=== PATIENT | male | born 1965 | race Caucasian/White ===

== ENCOUNTER 2020-01-11 09:56 | Outpatient (CLI) | payer OTHER, SELFPAY ==
--- NOTE | ~2020-01-11 | XR_ITS ---
EXAMINATION: XR chest 2V DATE: 01/11/2020 10:10 INDICATION: Nicotine dependence, unspecified, uncomplicated. Shortness of breath. TECHNIQUE: Frontal and lateral views of the chest were obtained. COMPARISON: None. FINDINGS: The chest demonstrates clear lungs without pneumonia, pleural effusion, or pneumothorax. Th e heart size is normal. IMPRESSION: 1. No acute cardiopulmonary disease. Reviewed, dictated and finalized at location A. [employer]ITER
== END 2020-01-11 09:57 | disposition home or self-care (01) ==
PROVIDERS: PCP Family Medicine; Visit Provider Family Medicine
DX: F17.200 Nicotine dependence, unspecified, uncomplicated (principal)
CPT/HCPCS: 71046

== ENCOUNTER 2020-01-27 09:12 | Outpatient (CLI) | payer OTHER, SELFPAY ==
[2020-01-27 17:10] LABS: Basophils Absolute Auto 0.1 K/mm3 (0.0-0.1); Basophils Percent Auto 1.4 % (0.2-1.2); Eosinophils Absolute Auto 0.1 K/mm3 (0-0.3); Eosinophils Percent Auto 0.9 % (0-4.4); Hematocrit 47.6 % (42.0-52.0); Hemoglobin 15.7 g/dL (14.0-18.0); Immature Granulocyte Absolute 0.01 K/mm3 (0.00-0.031); Immature Granulocyte Percent A 0.2 % (0-0.5); Lymphocytes Absolute Auto 2.21 K/mm3 (0.9-3.2); Lymphocytes Percent Auto 39.5 % (18.3-44.2); Mean Corpuscular Volume 94.1 fl (80-100); Monocytes Absolute Auto 0.4 K/mm3 (0.1-0.6); Monocytes Percent Auto 7.5 % (2.6-8.5); Neutrophils Absolute Auto 2.8 K/mm3 (1.3-6.7); Neutrophils Percent Auto 50.5 % (45.5-73.1); Platelet Count Result 230 k/mm3 (150-375); Red Blood Count 5.06 M/mm3 (4.6-6.20); White Blood Count 5.6 K/mm3 (4.5-10.0)
[2020-01-27 17:15] LABS: Add Urine Microscopic? YES; Appearance Urine Clear (Clear); Bilirubin Urine Negative (Negative); Blood Urine Negative (Negative); Color Urine Yellow (Yellow); Glucose Urine UA Negative (Negative); Ketones Urine Trace mg/dL (Negative); Leukocyte Esterase Ur Negative LEU/UL (Negative); Mucus Urine Few /lpf; Nitrate Urine Negative (Negative); Protein Urine Negative (Negative); RBC Urine 0-2 /hpf (0-2); Specific Grav Ur 1.019 (1.001-1.035)
[2020-01-27 17:18] LABS: Alanine Aminotransferase 13 U/L (4-50); Alkaline Phosphatase 69 U/L (38-126); Aspartate Amino Transferase 21 U/L (17-59); Bilirubin,Total 0.5 mg/dL (0.2-1.3); Blood Urea Nitrogen 14 mg/dL (9-20); CRP < 0.5 mg/dL (<1.0); Calcium 9.1 mg/dL (8.4-10.2); Carbon Dioxide 27 mmol/L (22-30); Chloride 100 mmol/L (98-107); Estimated Glomerular Filt Rate > 60; Glucose 111 mg/dL (75-110); Potassium 4.8 mmol/L (3.4-5.0); Sodium 137 mmol/L (137-145)
[2020-01-27 17:48] LABS: Prostate Specific Antigen 0.5 ng/mL (< OR = 4.0)
[2020-01-27 18:51] LABS: Folic Acid 10.4 ng/mL (2.76->20)
== END 2020-01-27 09:13 | disposition home or self-care (01) ==
PROVIDERS: PCP Family Medicine; Visit Provider Family Medicine
DX: K46.9 Unspecified abdominal hernia without obstruction or gangrene (principal); Z79.899 Other long term (current) drug therapy; Z12.5 Encounter for screening for malignant neoplasm of prostate; Z82.62 Family history of osteoporosis
CPT/HCPCS: 36415; 80053; 81001; 82306; 82607; 82746; 84153; 84443; 85025; 86140

== ENCOUNTER 2020-01-30 17:55 | Emergency (ER) | payer OTHER, SELFPAY ==
--- NOTE | ~2020-01-30 | CT_ITS ---
EXAMINATION: CT abdomen pelvis w con DATE: 01/30/2020 19:46 INDICATION: Abdominal pain TECHNIQUE: Computed tomography (CT) of the abdomen and pelvis was performed with 100 mL Omnipaque-350 intravenous contrast. Automated exposure control and iterative reconstruction technique were employe d. The dose-length product was 165.09 mGy-cm. COMPARISON: None FINDINGS: Mild atelectasis/scarring at the lingula. Visualized inferior heart is normal. No pericardial or pleu ral effusion. Several scattered subcentimeter low-attenuation hepatic cysts. Gallbladder, pancreas, b ilateral adrenal glands and kidneys are normal. Fluid throughout several loops of nondilated small suad wel. No abnormal bowel wall thickening or obstruction. Appendix is normal. Bladder is normal. No free intraperitoneal gas or fluid. No pathologically enlarged abdominal or pelvic lymphadenopathy. A few prominent left retroperitoneal collaterals draining to the caudal inferior vena cava likely arising f rom the left kidney and adrenal gland with prominent narrowing of the left renal vein due to extrinsi c compression between the superior mesenteric artery and aorta. There is calcified atherosclerosis of the aorta and many of the other arteries. Appears to be severe, greater than 70%, stenosis along the left common iliac artery. Approximately 50% stenosis at the right common iliac artery. Multiple Schm orl's nodes throughout the lumbar and visualized lower thoracic spine. Mild likely physiologic anteri or wedging at T11 and T12. IMPRESSION: 1. Mildly prominent nonspecific fluid throughout multiple loops of nondilated small bowel correlate c linically for gastroenteritis. 2. Normal appendix. No other acute intra-abdominal/pelvic process. 3. 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 Reviewed, dictated and finalized at location A. KEEPER IMPRESSION: 1. Mildly prominent nonspecific fluid throughout multiple loops of nondilated s mall bowel correlate clinically for gastroenteritis. 2. Normal appendix. No other acute intra-abdominal/pelvic process. 3. Atherosclerotic disease with likely superior, greater than 70% stenosis at t he left common iliac artery.
[2020-01-30 18:00] VITALS: BP 100/84; PULSE 106; RESP 18; TEMP 36.3; O2SAT 100
--- NOTE | 2020-01-30 18:24 | ED.ABDPAIN ---
HPI - Abdominal Pain General Chief Complaint: Abdominal Pain Stated Complaint: hernia rupture? Time Seen by Provider: 01/30/20 18:14 Source: patient Mode of arrival: ambulatory Limitations: no limitations History of Present Illness HPI narrative: A 54 y/o male pt presents to the ED, with c/o pain to his rt inguinal region for the past 8 weeks, that is worsening. Pt notes having a hernia repair several years ago, but states that his surgeon, Dr. Guadarrama no longer takes his insurance so he was not able to follow-up with him for his current Sx. Pt notes having sensitivity to his rt inguinal region since having the surgical repair. He reports patient states pain is described as sharp and stabbing problems urinating, but denies N/V/D, or fevers. Pt reports having NKA. MD elicited complaint: other (rt sided inguinal pain) Pertinent past history: other (rt inguinal hernia) Onset (ago): week(s) (8) Pain Consistency: other (worsening) Location: groin (rt inguinal region) Related Data Allergies Allergy/AdvReac Type Severity Reaction Status Date / Time No Known Allergies Allergy Verified 01/30/20 18:03 Review of Systems Review of Systems: All systems reviewed & are unremarkable except as noted in HPI and below Constitutional: Constitutional: Denies fever(s) Gastrointestinal: Gastrointestinal: Denies diarrhea, Denies nausea and Denies vomiting Genitourinary: Genitourinary: Reports scrotal swelling and Reports other (difficulty urinating, rt sided inguinal pain that radiates into scrotum) PMFSH Past Medical History Medical History (Updated 01/30/20 @ 22:06 by Marc Gutiérrez DO) Inguinal hernia Medical history unknown Surgical History Surgical History (Updated 01/30/20 @ 19:43 by Adenike [employer]) H/O inguinal hernia repair Surgical history unknown Social History Social History (Updated 01/30/20 @ 19:43 by Adenike [employer]) Smoking status: Unknown if ever smoked Gender identity (if verbalized by the patient): Male Exam Narrative: Exam Narrative: APPEARANCE: No acute distress, nontoxic, resting in bed HEENT: Normocephalic, atraumatic, OMM RESPIRATORY: No respiratory distress, clear to auscultation bilaterally with no rhonchi wheezing or rales CARDIOVASCULAR: RRR s murmur ABDOMINAL: Soft, nondistended, tender palpation of the right lower quadrant with mild tenderness left lower quadrant, no tenderness right upper quadrant left upper quadrant, no rebound or guarding : No skin lesions seen, no scrotal swelling or erythema, no hernia palpated, no testicular tenderness MUSCULOSKELETAl: Moves all extremities. No clubbing, cyanosis or edema. NEURO: Awake and alert. Following commands, speech normal, no focal deficits SKIN:: Warm, dry. Normal Color PSYCHIATRIC: Normal affect/mood Course Course Emergency Course: Patient notes minimal change in pain with morphine. Notes great improvement with Bentyl. Patient states that they are feeling much better at this time. States abdominal pain has improved repeat abdominal exam shows the patient's abdomen to be soft with no surgical abdomen present discussed with patient results of workup and diagnosis. Discussed need for follow-up with primary care physician, reasons to return to the emergency department in proper use of medication. Patient understands and agrees to current treatment plan Vital Signs Vital signs: Vital Signs Temperature 97.4 F L 01/30/20 18:00 Pulse Rate 106 H 01/30/20 18:00 Respiratory Rate 18 01/30/20 18:00 Blood Pressure 100/84 01/30/20 18:00 Pulse Oximetry 100 01/30/20 18:00 Temperature 98.5 F 01/30/20 21:41 Pulse Rate 80 01/30/20 21:41 Respiratory Rate 20 01/30/20 21:41 Blood Pressure 112/80 01/30/20 21:41 Pulse Oximetry 97 01/30/20 21:41 MDM - Abdominal Pain MDM Narrative Medical decision making narrative: Patient's abdomen is soft without significant pain or signs of surgical abdomen on serial exams. Rubi
[2020-01-30] MEDS: MORPHINE SULFATE 4 MG/ML INJ IV PUSH (18:45)
[2020-01-30] MEDS: LACTATED RINGERS 1,000 ML 999 ML IV CONT (18:46)
[2020-01-30 19:23] LABS: Basophils Absolute Auto 0.1 K/mm3 (0.0-0.1); Basophils Percent Auto 0.8 % (0.2-1.2); Eosinophils Percent Auto 0.5 % (0-4.4); Hematocrit 46.7 % (42.0-52.0); Hemoglobin 15.7 g/dL (14.0-18.0); Immature Granulocyte Absolute 0.02 K/mm3 (0.00-0.031); Immature Granulocyte Percent A 0.3 % (0-0.5); Lymphocytes Absolute Auto 1.86 K/mm3 (0.9-3.2); Lymphocytes Percent Auto 25.3 % (18.3-44.2); Mean Corpuscular HGB Conc 33.6 g/dl (32-36); Mean Corpuscular Volume 92.3 fl (80-100); Mean Platelet Volume 9.3 fl (7.4-10.4); Monocytes Absolute Auto 0.5 K/mm3 (0.1-0.6); Monocytes Percent Auto 6.7 % (2.6-8.5); Neutrophils Absolute Auto 4.9 K/mm3 (1.3-6.7); Neutrophils Percent Auto 66.4 % (45.5-73.1); Platelet Count Result 179 k/mm3 (150-375); Red Blood Count 5.06 M/mm3 (4.6-6.20); Red Cell Distribution Width 12.7 % (11.5-14.5); White Blood Count 7.4 K/mm3 (4.5-10.0)
[2020-01-30 19:36] LABS: Alanine Aminotransferase 13 U/L (4-50); Alkaline Phosphatase 72 U/L (38-126); Aspartate Amino Transferase 20 U/L (17-59); Bilirubin,Total 0.6 mg/dL (0.2-1.3); Blood Urea Nitrogen 11 mg/dL (9-20); Calcium 9.2 mg/dL (8.4-10.2); Carbon Dioxide 26 mmol/L (22-30); Chloride 105 mmol/L (98-107); Estimated CRCL calculation 69 ml/min; Estimated Glomerular Filt Rate > 60; Glucose 95 mg/dL (75-110); Lipase 476 U/L (23-300); Potassium 4.2 mmol/L (3.4-5.0); Sodium 137 mmol/L (137-145)
[2020-01-30 19:40] LABS: Blood Urea Nitrogen 11 mg/dL (8-26); Estimated CRCL calculation 62 ml/min; Estimated Glomerular Filt Rate > 60
[2020-01-30 20:38] LABS: Add Urine Microscopic? YES; Appearance Urine Clear (Clear); Bacteria Urine Trace /hpf; Bilirubin Urine Negative (Negative); Blood Urine Negative (Negative); Color Urine Yellow (Yellow); Glucose Urine UA Negative (Negative); Ketones Urine Trace mg/dL (Negative); Leukocyte Esterase Ur Negative LEU/UL (Negative); Mucus Urine Few /lpf; Nitrate Urine Negative (Negative); Protein Urine 1+ mg/dL (Negative); RBC Urine 0-2 /hpf (0-2); Urobilinogen Urine Negative mg/dL (<2.0); WBC Urine 0-3 /hpf
[2020-01-30 20:39] LABS: Specific Grav Ur 1.053 (1.001-1.035)
[2020-01-30] MEDS: DICYCLOMINE HCL INJ 20 MG/2 ML VIAL IM (21:03)
[2020-01-30 21:41] VITALS: BP 112/80; PULSE 80; RESP 20; TEMP 36.9; O2SAT 97
== END 2020-01-30 22:24 | disposition home or self-care (01) ==
PROVIDERS: Emergency Provider Emergency Medicine
DX: R10.31 Right lower quadrant pain (principal); I70.8 Atherosclerosis of other arteries
CPT/HCPCS: 36415; 74177; 80053; 81001; 83690; 85025; 96361; 96372; 96374; 99284; J0500; J2270; J7120; Q9967

== ENCOUNTER 2023-07-29 11:55 | Emergency (ER) | payer OTHER, SELFPAY ==
[2023-07-29 12:02] VITALS: BP 122/81; PULSE 96; RESP 18; TEMP 36.4; O2SAT 97
--- NOTE | 2023-07-29 12:40 | ED.EYEPROB ---
HPI - Eye Problem General Chief complaint: Eye Problems Stated complaint: I got poked in the eye with a branch Right eye Time Seen by Provider: 07/29/23 12:39 Source: patient Mode of arrival: ambulatory Limitations: no limitations History of Present Illness HPI Narrative: Austin is a 57-year-old male patient presenting to the clinic today with complaints of right eye pain after injury. He reports that a tree branch poked him in the eye yesterday while he was doing yd work. States he is having eye pain with watering and some slight blurry vision. Related Data Allergies Allergy/AdvReac Type Severity Reaction Status Date / Time No Known Allergies Allergy Verified 07/29/23 12:36 Review of Systems Review of Systems: Pertinent positives per HPI. Patient denies any fever, chills, rash, headache, dizziness, cough, runny nose, sore throat, shortness of breath, chest pain, palpitations, nausea, vomiting, diarrhea, constipation, abdominal pain, or any urinary issues. PMFSH Past Medical History Medical History COPD (chronic obstructive pulmonary disease) Hernia Inguinal hernia Medical history unknown Surgical History Surgical History H/O bilateral inguinal hernia repair H/O inguinal hernia repair Surgical history unknown Family History Family History (System 02/01/20 @ 08:34 by Debo Khan) Father Heart attack Social History Social History Smoking packs per day: 1.5 Smoking cigarettes per day: 30.0 Years smoked: 40 Smoking pack-years: 60.00 Smoking status: Unknown if ever smoked Tobacco type: cigarettes Alcohol intake: current Drinks per week: 1 Substance use: current Substance use type: marijuana Gender identity (if verbalized by the patient): Male Exam Narrative: General: Well-developed, well nourished, in no apparent distress Head: Normocephalic, atraumatic Eyes: Pupils equally round and reactive to light bilaterally, EOM intact, left sclera and conjunctive clear, right sclera and conjunctiva injected, watery discharge coming from the right eye,no discharge from the left eye, lids normal, Wood's lamp exam was performed and shows a corneal abrasion at 7:00 a.m.- Oduglas pressure of the right eye was 10. Ears: TMs intact and clear, ear canals clear, no drainage, grossly hearing normal. Nose: Nares patent, no discharge, no inflammation, no sinus tenderness. Mouth: Oropharynx without lesions or masses, good dentition, MMM. Neck: Supple, trachea midline, no enlargement of anterior or posterior cervical nodes, no thyroid masses or goiter palpable. Cardio: Regular rate and rhythm, s1 and s2 normal, no murmur appreciated. Resp: Clear to auscultation bilaterally anteriorly and posteriorly, no rhonchi, rales, wheezing or rubs Course Vital Signs Vital signs: Vital Signs Temperature 36.4 C 07/29/23 12:02 Pulse Rate 96 07/29/23 12:02 Respiratory Rate 18 07/29/23 12:02 Blood Pressure 122/81 07/29/23 12:02 Pulse Oximetry 97 07/29/23 12:02 Oxygen Delivery Room Air 07/29/23 12:02 Temperature 36.4 C 07/29/23 12:02 Pulse Rate 96 07/29/23 12:02 Respiratory Rate 18 07/29/23 12:02 Blood Pressure 122/81 07/29/23 12:02 Pulse Oximetry 97 07/29/23 12:02 Oxygen Delivery Room Air 07/29/23 12:02 Procedures Other Procedure Procedure 1: Other Procedure: Two drops of tetracaine anesthetic was instilled into the right eye with good anesthesia. Fluorescein stain of the right eye was performed with corneal abrasion noted at 7:00. NO FB, ulcer or dendritic lesions. Upper lid was everted and no FB or lesions were noted. NO Keith sign. Normal saline irrigation eye solution was performed and the patient tolerated the procedure well, no adverse reaction or co
[2023-07-29] MEDS: FLUORESCEIN SOD 1 MG/STRIP (13:02)
[2023-07-29] MEDS: TETRACAINE HCL 0.5% OPHTH SOLN 4 ML BTL 1 DROP (13:03)
== END 2023-07-29 13:04 | disposition home or self-care (01) ==
LOC: ANHED 12:55
PROVIDERS: Emergency Provider Nurse Practitioner Family
DX: S05.01XA Injury of conjunctiva and corneal abrasion without foreign body, right eye, initial encounter (principal); J44.9 Chronic obstructive pulmonary disease, unspecified; F17.210 Nicotine dependence, cigarettes, uncomplicated; W22.8XXA Striking against or struck by other objects, initial encounter; Y93.H2 Activity, gardening and landscaping
CPT/HCPCS: 99283